=== PATIENT | male | born 1970 | race Caucasian/White ===

== ENCOUNTER 2019-12-01 13:23 | Emergency (ER) | payer MEDICAID ==
[~2019-12-01] VITALS: Ht 185.4 cm; Wt 86.4 kg
[2019-12-01] MEDS ORDERED: ACETAMINOPHEN 500 MG TABLET PO ONE (14:00)
[2019-12-01] MEDS ORDERED: SULFAMETHOX/TRIMETH DS 800-160 MG/TABLET PO ONE (14:00)
[2019-12-01] MEDS ORDERED: CEPHALEXIN MONOHYDRATE 500 MG CAPSULE PO ONE (14:00)
[2019-12-01 14:36] VITALS: BP 131/74
== END 2019-12-01 14:37 | disposition home or self-care (01) ==
LOC: EMS 13:24
DX: L03.113 Cellulitis of right upper limb (principal); F17.210 Nicotine dependence, cigarettes, uncomplicated; F19.90 Other psychoactive substance use, unspecified, uncomplicated
CPT/HCPCS: 99406; Z7502; Z7610

== ENCOUNTER 2020-05-31 01:03 | Emergency (ER) | payer MEDICAID ==
[~2020-05-31] VITALS: Ht 182.9 cm; Wt 95.5 kg
[2020-05-31 01:19] VITALS: BP 137/98
== END 2020-05-31 01:27 | disposition left against medical advice (07) ==
LOC: EMS 01:06
DX: R10.9 Unspecified abdominal pain (principal); Z53.21 Procedure and treatment not carried out due to patient leaving prior to being seen by health care provider